=== PATIENT | male | born 1960 | race Caucasian/White ===

== ENCOUNTER → 2021-04-25 | Outpatient (CLI) | payer MEDICARE ==
[~2021-04-25] MED LIST: ADULT LOW DOSE81 MG PO; BRILINTA90 MG PO; CHANTIX1 EACH PO; GLUCOPHAGE 500500 MG PO; LISINOPRIL5 MG PO; LOPRESSOR 25 MG25 MG PO; NITROSTAT 0.40.4 MG SL; PLAVIX 75 MG TA75 MG PO; PRAVACHOL40 MG PO
== END ==
LOC: KOH-I 12:26
DX: M47.816 Spondylosis without myelopathy or radiculopathy, lumbar region (principal); M51.36 Other intervertebral disc degeneration, lumbar region
CPT/HCPCS: 72100